=== PATIENT | male | born 1945 | race Two or more races ===

== ENCOUNTER 2016-06-07 06:57 | Day surgery (SDC) | payer BC, MEDICARE ==
[~2016-06-07] VITALS: Ht 185.4 cm; Wt 120.2 kg
--- NOTE | 2016-06-07 11:48 | Anesthesia Record ---
Anesthesia Record Part I Total IV fluids: 600 EBL (ml): 75 Urine Output: 0 Units of blood given: 0 B/P: 95/51 % SaO2: 95 Pulse: 91 Resps: 16 Temp: 97 Patient is: Awake, Stable Stable to PACU at: 1138 at 1147
--- NOTE | 2016-06-07 11:48 | Anesthesia Record ---
Anesthesia Record Part II Discharge time: 1208 Destination: Same day surgery (REMAINS IN SDS) PACU nurse assessment review? Yes Patient is: Awake, Stable Anesthesia complications? No at 1140
--- NOTE | 2016-06-07 16:31 | RADIOLOGY REPORT PS360 ---
CHEST-PORTABLE Ordering Physician: Antwan Avendano MD Patient Age: 70 years: Male HISTORY: POST OP BAY 4 following pacemaker placement Evaluate pacemakerline lead placement TECHNIQUE: AP portable upright chest following pacemaker placement FINDINGS No useful previous studies for comparison Bipolar pacemaker overlying left chest. Atrial and ventricular leads appear intact & appropriately positioned. Heart normal size.. Median sternotomy noted. Additional linear device overlying the left heart border noted The lungs are clear with no active disease. No CHF. Previous anterior fusion lower C-spine. Small just over 4 mm nodular density left lung base, projected left anterior sixth rib & just above left hemidiaphragm. This may be a partially calcified granuloma given its fairly dense for size would benefit from comparison to prior chest films elsewhere. Only suggest a follow-up 2 view chest and [address] if patient particularly if is a smoker.. IMPRESSION. ------- Pacemaker overlying left chest with atrial and ventricular leads, in place Sternotomy.. Small linear device projected over left heart border noted as well Small just over 4 mm nonspecific most likely benign nodule just above left hemidiaphragm.
[2016-06-07 17:26] VITALS: BP 102/66
--- NOTE | 2016-06-07 23:02 | RADIOLOGY REPORT PS360 ---
PACEMAKER/DEFIBRILLATOR Ordering Physician: Antwan Avendano MD Patient Age: 70 years: Male HISTORY: ISCHEMIC CARDIOMYPATHY TECHNIQUE: 2 images from image intensifier obtained during the placement of pacemaker. FINDINGS The images do reveal the atrial and ventricular leads in place. Sternotomy wire sutures noted. Mild cardiomegaly noted. A Linear metallic linear device overlying the left heart superiorly is noted as well .
--- NOTE | 2016-06-11 14:59 | Operative Note ---
Pacemaker Procedure performed: Procedure 1.Pocket formation for AICD. 2.Placement of atrial sensing and pacing coil into the right atrial appendage. 3.Placement of ventricular sensing, pacing and shocking coil in the right ventricular apex. 4.Permanent AICD placement. Date of procedure: 06/07/16 Time: 1400 Preoperative Diagnosis: ISCHEMIC CARIOMYOPATHY, severe Indication for test: SEE ABOVE Complications: None EBL LESS THAN 10CC Technique: 1% Lidocaine with epinephrine used to anesthetize the left anterior aspect of the chest.Scalpel was used to make the initial cutaneous incision while electrocautery was used to dissect down into the fascia. The fascia was lifted off the pectoralis muscle and digitally manipulated creating a pocket for the pacemaker. The patient was then placed in Trendelenburg position and the subclavian vein was accessed via the Selinger technique. A 7 Croatian sheath was placed under fluoroscopic guidance into the subclavian vein. Following this, an additional wire was placed into the sheath. Now, with two wires inside the 7 Croatian sheath, this sheath was removed, maintaining the two wires in the subclavian vein. The sheath and dilator was then placed over one of the wires while keeping the other wire in place within the subclavian vein. The dilator was removed from the sheath. Using fluoroscopic guidance, the ventricular lead was placed into the right ventricular apex, screwed and secured into place. Electronic interrogation proved acceptable thresholds and voltage within the lead. Using 3-0 silk, the ventricular lead was then secured into place. Lead was secured to the fascia using the 3-0 silk. Following this, the sheath was pealed away. An additional 7 Croatian fresh sheath and dilator was placed over the existing wire. Using fluoroscopic guidance, the atrial lead was then placed into the right atrial appendage and screwed and secured in place. Electrical interrogation demonstrated acceptable thresholds and voltage numbers. The atrial lead was then secured into place using 3-0 silk and then the lead was finally secured to the fascia. With both the atria and ventricular leads in place with acceptable thresholds and sensitivity, the atrial and ventricular leads were placed into the pacemaker generator. Pacemaker generator was then secured to the fascia using 3-0 silk. 1 gram of Ancef was used to flush the pocket. Following the pacemaker being secured to the fascia and in place, Monocryl was used to close the subcutaneous layers while hiro were used to close the cutaneous layer. A pressure dressing was placed and the patient was transferred to the postop holding area in stable condition for postoperative care. Impression: Generator [facility] Model # [id number] Serial # [id number] RA Model # [id number] Serial # [id number] P-wave 2.0 AF Impedance 425 Threshold AF RVA Model # [id number] Serial # [id number] R-wave 9-10 Impedance 903 Threshold 0.8 Pulse Width 0.5 Pacing Parameters: Mode: DDI @60PPM Base/Max Track: Max Sensor ICD Rate Cutoffs VT-150 VT-180 VF-214 Therapies: MONITOR ATP X3 36J,40J ATP W/C, 36J, 40J Interrogation: See above. Plan: Routine post op care at 1538
--- NOTE | 2016-06-11 14:59 | Operative Note ---
Pacemaker Procedure performed: Procedure 1.Pocket formation for AICD. 2.Placement of atrial sensing and pacing coil into the right atrial appendage. 3.Placement of ventricular sensing, pacing and shocking coil in the right ventricular apex. 4.Permanent AICD placement. Date of procedure: 06/07/16 Time: 1400 Preoperative Diagnosis: ISCHEMIC CARIOMYOPATHY, severe Indication for test: SEE ABOVE Complications: None EBL LESS THAN 10CC Technique: 1% Lidocaine with epinephrine used to anesthetize the left anterior aspect of the chest.Scalpel was used to make the initial cutaneous incision while electrocautery was used to dissect down into the fascia. The fascia was lifted off the pectoralis muscle and digitally manipulated creating a pocket for the pacemaker. The patient was then placed in Trendelenburg position and the subclavian vein was accessed via the Selinger technique. A 7 Gabonese sheath was placed under fluoroscopic guidance into the subclavian vein. Following this, an additional wire was placed into the sheath. Now, with two wires inside the 7 Gabonese sheath, this sheath was removed, maintaining the two wires in the subclavian vein. The sheath and dilator was then placed over one of the wires while keeping the other wire in place within the subclavian vein. The dilator was removed from the sheath. Using fluoroscopic guidance, the ventricular lead was placed into the right ventricular apex, screwed and secured into place. Electronic interrogation proved acceptable thresholds and voltage within the lead. Using 3-0 silk, the ventricular lead was then secured into place. Lead was secured to the fascia using the 3-0 silk. Following this, the sheath was pealed away. An additional 7 Gabonese fresh sheath and dilator was placed over the existing wire. Using fluoroscopic guidance, the atrial lead was then placed into the right atrial appendage and screwed and secured in place. Electrical interrogation demonstrated acceptable thresholds and voltage numbers. The atrial lead was then secured into place using 3-0 silk and then the lead was finally secured to the fascia. With both the atria and ventricular leads in place with acceptable thresholds and sensitivity, the atrial and ventricular leads were placed into the pacemaker generator. Pacemaker generator was then secured to the fascia using 3-0 silk. 1 gram of Ancef was used to flush the pocket. Following the pacemaker being secured to the fascia and in place, Monocryl was used to close the subcutaneous layers while ihro were used to close the cutaneous layer. A pressure dressing was placed and the patient was transferred to the postop holding area in stable condition for postoperative care. Impression: Generator [facility] Model # [id number] Serial # [id number] RA Model # [id number] Serial # [id number] P-wave 2.0 AF Impedance 425 Threshold AF RVA Model # [id number] Serial # [id number] R-wave 9-10 Impedance 903 Threshold 0.8 Pulse Width 0.5 Pacing Parameters: Mode: DDI @60PPM Base/Max Track: Max Sensor ICD Rate Cutoffs VT-150 VT-180 VF-214 Therapies: MONITOR ATP X3 36J,40J ATP W/C, 36J, 40J Interrogation: See above. Plan: Routine post op care at 153
== END 2016-06-07 14:35 | disposition home or self-care (01) ==
LOC: SDC 06:57
PROVIDERS: Internal Medicine
PROC: 02HK3KZ Insertion of Defibrillator Lead into Right Ventricle, Percutaneous Approach (ICD-10-PCS; 2016-06-07)
PROC: 02H63KZ Insertion of Defibrillator Lead into Right Atrium, Percutaneous Approach (ICD-10-PCS; 2016-06-07)
PROC: 4B02XTZ Measurement of Cardiac Defibrillator, External Approach (ICD-10-PCS; 2016-06-07)
PROC: 0JH608Z Insertion of Defibrillator Generator into Chest Subcutaneous Tissue and Fascia, Open Approach (ICD-10-PCS; principal; 2016-06-07 08:45)
DX: Z45.02 Encounter for adjustment and management of automatic implantable cardiac defibrillator (principal); I25.5 Ischemic cardiomyopathy
CPT/HCPCS: C1721; C1777; C1898